=== PATIENT | male | born 1980 | race African-American/Black ===

== ENCOUNTER 2018-09-13 14:14 | Emergency (ER) | payer OTHER ==
[2018-09-13] MEDS ORDERED: LIDOCAINE 5% (700 MG) TRANSDERMAL ADH..PATCH TP ONE (14:52)
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
[2018-09-13 16:07] VITALS: BP 127/84
== END 2018-09-13 16:12 | disposition home or self-care (01) ==
LOC: ER 14:14
DX: S13.4XXA Sprain of ligaments of cervical spine, initial encounter (principal); R07.89 Other chest pain; R51 Headache; M54.2 Cervicalgia; M25.519 Pain in unspecified shoulder; V43.62XA Car passenger injured in collision with other type car in traffic accident, initial encounter; F17.200 Nicotine dependence, unspecified, uncomplicated
CPT/HCPCS: 71046; 99283